=== PATIENT | female | born 1950 | race Caucasian/White ===

== ENCOUNTER 2022-07-01 02:18 | Inpatient (IN) | payer MEDICARE, SELFPAY ==
[2022-07-01] VITALS (55 sets, daily range): BP systolic 97–219; BP diastolic 60–130; PULSE 62–118; RESP 14–34; TEMP 36.4–37.1; O2SAT 87–99; BMI 27.3
--- NOTE | 2022-07-01 02:20 | ECG_ITS ---
[facility] Test Date: 2022-07-01 Pat Name: Yudith Damon Department: Room: Gender: Female Plaster Tender: : 1950 Requested By: Carisa Wayne Order Number: [id number] Lyndon MD: Carmen Lujan M.D. Measurements Intervals [place] Rate: 101 P: 39 NM: 170 QRS: -7 QRSD: 100 T: 200 QT: 328 QTc: 425 Interpretive Statements SINUS TACHYCARDIA ST DEVIATION AND MODERATE T-WAVE ABNORMALITY, CONSIDER LATERAL ISCHEMIA [-0.1+ mV T-WAVE IN I/aVL/V5/V6] No previous ECG available for comparison Electronically Signed On 07-01-2022 19:27:31 CDT by Carmen Lujan M.D. [id number]
--- NOTE | 2022-07-01 02:21 | XRR_ITS ---
PROCEDURE INFORMATION: Exam: XR Chest Exam date and time: 07/01/2022 2:31 AM Age: 71 years old Clinical indication: Pain; Chest pressure; Additional info: Cp TECHNIQUE: Imaging protocol: Radiologic exam of the chest. Views: 1 view. COMPARISON: No relevant prior studies available. FINDINGS: Lungs: Questionable ground-glass densities in the left lung base and retrocardiac region. The remainder of the lung parenchyma is clear. Pleural spaces: No pneumothorax. No pleural effusion. Heart/Mediastinum: The heart is enlarged for size. Bones/joints: Unremarkable. XR/XR chest 1V portable [id number] IMPRESSION: 1. Cardiomegaly. 2. Questionable ground-glass densities in the left lung base and retrocardiac region, which may be consistent with atelectasis versus focal pulmonary edema or pneumonia.
--- NOTE | 2022-07-01 02:22 | ED_ITS ---
HPI - Chest Pain General: Chief Complaint: Chest Pain Stated Complaint: CHEST PAIN Time Seen by Provider: 07/01/22 02:21 Source: patient and EMS Mode of arrival: EMS Limitations: no limitations History of Present Illness: 71-year-old female who states at 10 PM tonight started having severe crushing chest pain the center of her chest states originally 10 out of 10 when EMS arrived they given her 3 nitros and placed on Nitropaste along with Zofran as she is having some nausea she is currently pain-free she had some shortness of breath earlier and since resolved as well. Denies any vomiting denies any abdominal pain. Denies any fevers. Associated symptoms: Deny abdominal pain, dyspnea, fever(s), nausea or vomiting Review of Systems Const: Denies: fever(s), chills, body aches or change in appetite Eyes: Denies: blurry vision or eye discomfort ENMT: Denies: throat pain or dental pain Card: Reports: chest pain Resp: Denies: dyspnea GI: Denies: abdominal pain, nausea, vomiting or diarrhea : Denies: dysuria Musc: Denies: neck pain or back pain Skin/Breast: Denies: rash Neuro: Denies: headache(s) Psych: Denies: depression Fredy/Lymph: Denies: easy bruising All/Imm: Denies: urticaria PFSH ED PFSH: Medical History Smoking Social History (Updated 07/01/22 @ 02:23 by Carisa Wayne MD) Smoking and tobacco status: current every day smoker Physical Exam Const: COMMON NORMALS: no acute distress, patient oriented x3 and healthy appearing HENMT: COMMON NORMALS: normocephalic and atraumatic HEAD & SCALP: normocephalic and atraumatic Eye: COMMON NORMALS: Equal, round and reactive pupils present and EOMs intact bilaterally PUPIL: Yes Equal, round and reactive pupils present Neck/C-Spine: COMMON NORMALS: full ROM and supple Chest: COMMONS NORMALS: normal inspection of the chest and normal palpation of entire chest wall Resp: COMMON NORMALS: normal respiratory effort, No retractions, No use of accessory muscles and clear to auscultation bilaterally AUSCULTATION: clear to auscultation bilaterally Cardio: COMMON NORMALS: regular rate, regular rhythm and No murmurs present (Cardio) RATE: regular rate RHYTHM: regular rhythm GI: COMMON NORMALS: Normal to inspection, nondistended, normoactive bowel sounds present, Soft to palpation, non-tender and no masses PALPATION: Yes Soft to palpation Extremity: COMMON NORMALS: normal to inspection and full ROM Neuro: COMMON NORMALS: patient oriented x3, moves all extremities and no focal motor deficits Psych: COMMON NORMALS: mental status grossly normal, Normal thought process present and cooperative THOUGHT PROCESS: Normal thought process present Skin: COMMON NORMALS: no rashes or lesions noted and no wounds GENERAL SKIN EXAM: no rashes or lesions noted Course Vital Signs: Vital signs: Vital Signs Temperature 98.2 F 07/01/22 02:22 Pulse Rate 82 07/01/22 03:02 Respiratory Rate 19 H 07/01/22 02:39 Blood Pressure 167/97 07/01/22 03:02 Pulse Oximetry 94 07/01/22 03:02 Oxygen Delivery Me thod 07/01/22 02:22 MDM - Chest Pain Medical Decision Making Patient presents with chest pain that since been resolved she has been pain-free here she does have ST depression on her EKG troponins elevated up spoke to Dr. Anglin he is reviewed the EKG we will treat with Lovenox at this time and admit. Lab Data : 07/01/22 02:21 07/01/22 02:21 Laboratory Results WBC 8.0 10^3/uL (4.0-10.0) 07/01/22 02:21 RBC 5.10 10^6/uL (4.1-5.3) 07/01/22 02:21 Hgb 15.7 g/dL (11.5-15.3) H 07/01/22 02:21 Hct 46.0 % (37.0-47.0) 07/01/22 02:21 MCV 90.2 fl (81-99) 07/01/22 02:21 MCH 30.8 pg (28.0-34.0) 07/01/22 02:21 MCHC 34.1 g/dL (30.0-36.0) 07/01/22 02:21 RDW 12.9 % (12.1-15.1) 07/01/22 02:21 Plt Count 187 10^3/cmm (130-400) 07/01/22 02:21 MPV 10.1 fL (7.4-10.4) 07/01/22 02:21 Neut % (Auto) 64.5 % 07/01/22 02:21 Lymph % (Auto) 27.3 % 07/01/22 02:21 Pleasants % (Auto) 6.2 % 07/01/22 02:21 Eos % (Auto) 1.3 % 07/01/22 02:21 Baso % (Auto) 0.4 % 07/01/22 02:21 Neut # (Auto) 5.15 10^3/uL (1.8-7.7) 07/01/22 02:21 Lymph # (Auto) 2.2 10^3/uL (0.8-4.8) 07/01/22 02:21 Pleasants # (Auto) 0.5 10^3/uL (0.2-0.9) 07/01/22 02:21 Eos # (Auto) 0.1 10^3/uL (0.0-0.8) 07/01/22 02:21 Baso # (Auto) 0.0 10^3/uL (0.0-0.1) 07/01/22 02:21 Nucleated RBC % (auto) 0 % 07/01/22 02:21 Nucleated RBCs # 0.0 /100WBC 07/01/22 02:21 Sodium 138 mmol/L (136-145) 07/01/22 02:21 Potassium 3.6 mmol/L (3.5-5.1) 07/01/22 02:21 Chloride 103 mmol/L (98-107) 07/01/22 02:21 Carbon Dioxide 21 mmol/L (22-29) L 07/01/22 02:21 Anion Gap 17.6 (5-19) 07/01/22 02:21 BUN 13 mg/dL (8-23) 07/01/22 02:21 Creatinine 0.7 mg/dL (0.5-0.9) 07/01/22 02:21 GFR Calculation Not Reportable 07/01/22 02:21 Glucose 191 mg/dL (65-115) H 07/01/22 02:21 Calculated Osmolality 291 mOsm/kg (285-295) 07/01/22 02:21 Calcium 9.7 mg/dL (8.5-10.5) 07/01/22 02:21 Total Bilirubin 0.6 mg/dL (0.15-1.2) 07/01/22 02:21 AST 19 U/L (0-32) 07/01/22 02:21 ALT 10 U/L (0-33) 07/01/22 02:21 Alkaline Phosphatase 83 U/L (35-105) 07/01/22 02:21 Troponin T Baseline 353 ng/L (0-10) H* 07/01/22 02:21 Total Protein 7.5 g/dL (6.6-8.7) 07/01/22 02:21 Albumin 4.0 g/dL (3.5-5.2) 07/01/22 02:21 Globulin 3.5 g/dL (1.3-4.6) 07/01/22 02:21 EKG Data EKG 1: I personally reviewed and interpreted this EKG as follows: EKG interpretation date: 07/01/22 EKG interpretation time: 02:20 Interpretation: sinus tach hr 101 st depression in v2-v6 no st elevation qrs 100 qtc 386 Discharge Plan Discharge Patient Disposition: Admitted As Inpatient Clinical Impression: Non-ST elevation [place] (NSTEMI) Coding Level of Care Code ED Lay Out Worker for Chg Fwd Exam Comprehensive
[2022-07-01 02:27] LABS: Basophils % 0.4 %; Eosinophils # 0.1 10^3/uL (0.0-0.8); Eosinophils % 1.3 %; Hemoglobin 15.7 g/dL (11.5-15.3); Lymphocytes # 2.2 10^3/uL (0.8-4.8); Lymphocytes % 27.3 %; Mean Corpuscular HGB Conc 34.1 g/dL (30.0-36.0); Mean Corpuscular Hemoglobin 30.8 pg (28.0-34.0); Mean Corpuscular Volume 90.2 fl (81-99); Mean Platelet Volume 10.1 fL (7.4-10.4); Monocytes # 0.5 10^3/uL (0.2-0.9); Monocytes % 6.2 %; Neutrophils # 5.15 10^3/uL (1.8-7.7); Neutrophils % 64.5 %; Nucleated Red Blood Cells % 0 %; Platelet Count 187 10^3/cmm (130-400); Red Cell Distribution Width 12.9 % (12.1-15.1)
[2022-07-01 02:51] LABS: Alanine Aminotransferase 10 U/L (0-33); Alkaline Phosphatase 83 U/L (35-105); Anion Gap 17.6 (5-19); Aspartate Amino Transferase 19 U/L (0-32); Blood Urea Nitrogen 13 mg/dL (8-23); Calcium 9.7 mg/dL (8.5-10.5); Carbon Dioxide 21 mmol/L (22-29); Chloride 103 mmol/L (98-107); Creatinine Clr Calc Pharmacy 53.6619; Globulin 3.5 g/dL (1.3-4.6); Glucose 191 mg/dL (65-115); Osmolality Calculated 291 mOsm/kg (285-295); Potassium 3.6 mmol/L (3.5-5.1); Sodium 138 mmol/L (136-145); Total Bilirubin 0.6 mg/dL (0.15-1.2); Total Protein 7.5 g/dL (6.6-8.7)
[2022-07-01] MEDS: labetalol 5 mg/mL SDV 20mL 10 MG IVP (02:55)
[2022-07-01 03:01] LABS: Troponin(5th) Baseline 353 ng/L (0-10)
[2022-07-01] MEDS: enoxaparin 80 mg/0.8 mL Syringe 60 MG SUBCUT (03:19)
--- NOTE | 2022-07-01 04:21 | ECG_ITS ---
[facility] Test Date: 2022-07-01 Pat Name: Yudith Damon Department: Room: 276 Gender: Female Talent Consultant: : 1950 Requested By: Carisa Wayne Order Number: [id number] Lyndon MD: Carmen Lujan M.D. Measurements Intervals [place] Rate: 89 P: 39 VA: 175 QRS: 1 QRSD: 96 T: 199 QT: 344 QTc: 420 Interpretive Statements SINUS RHYTHM ST DEVIATION AND MODERATE T-WAVE ABNORMALITY, CONSIDER LATERAL ISCHEMIA [-0.1+ mV T-WAVE IN I/aVL/V5/V6] ST DEVIATION AND MODERATE T-WAVE ABNORMALITY, CONSIDER INFERIOR ISCHEMIA [-0.1+ mV T-WAVE IN II/aVF] Compared to ECG 07/01/2022 02:20:28 Sinus tachycardia no longer present T-wave abnormality still present Possible ischemia still present Electronically Signed On 07-01-2022 19:35:38 CDT by Carmen Lujan M.D. [id number]
--- NOTE | 2022-07-01 05:01 | PC.NURSE ---
This RN agrees with all documentation and medication administration as demonstrated by student RN at this time. Will continue to monitor student activities.
--- NOTE | 2022-07-01 05:24 | USCV_ITS ---
Yudith Damon Age: 71 Gender: F : 1950 Exam Date: 07/01/2022 09:00 Ordering Phys: Solange Ken MD Technologist: JOSEFA [place] [facility] [place]: CHEST PAIN, POST CATH BP: 185 / 125 HR: 74 Rhythm: Sinus Technical Quality: Adequate MEASUREMENTS (Male / Female) Normal Values 2D ECHO LVOT Diameter 2.0 cm LV Ejection Fraction MOD 2C 43.6 % LV Ejection Fraction 2C AL 44.3 % LA Diameter 3.4 cm LA Width 2.6 cm LA Height 5.6 cm RA Width 2.6 cm RA Height 3.8 cm Aorta at Sinotubular Diameter 2.7 cm IVC Diameter 1.7 cm M-MODE Aortic Annulus Diameter 2.6 cm LA Ao Ratio MM 1.2 MV E Point Septal Separation 0.7 cm DOPPLER AV Peak Velocity 149.0 cm/s LVOT Peak Velocity 93.0 cm/s AV Area Cont Eq vti 1.9 cm squared AV Area Cont Eq pk 2.0 cm squared MV Peak Velocity 116.0 cm/s MV Area PHT 3.2 cm squared Mitral E to A Ratio 0.6 MV E' Velocity 31.5 cm/s Mitral E to MV E' Ratio 13.6 Mitral E to LV E' Lateral Ratio 11.3 Mitral E to LV E' Septal Ratio 17.2 TR Peak Velocity 267.1 cm/s TR Peak Gradient 28.5 mmHg TR Mean Velocity 215.1 cm/s TR Mean Gradient 19.9 mmHg TR Velocity Time Integral 77.1 cm TV Peak E Velocity 48.0 cm/s Right Atrial Pressure 3.0 mmHg Pulmonary Artery Systolic Pressu 31.5 mmHg PV Peak Velocity 109.0 cm/s RV Acceleration Time 0.1 s RV Ejection Time 0.3 s RV AcT/ET 0.3 FINDINGS Left Ventricle Left ventricle is normal in size. LV systolic function is mildly reduced with EF of 40 to 45%. Mild global hypokinesis is seen. Moderate hypokinesis of inferior wall is seen. Grade 1 diastolic dysfunction is noted. Right Ventricle Normal in size and function Right Atrium Normal in size Left Atrium Normal in size Mitral Valve Structurally normal mitral valve. No significant stenosis is seen. Mild mitral regurgitation. Aortic Valve Grossly normal. No significant stenosis or regurgitation seen. Tricuspid Valve Trace tricuspid regurgitation. Insufficient TR jet to calculate RVSP. Pulmonic Valve Not well-visualized Pericardium Trace pericardial effusion Aorta Normal in size IVC IVC appears to be normal CONCLUSIONS LV systolic function is mildly reduced with EF of 40 to 45%. Mild global hypokinesis is seen. Moderate hypokinesis of inferior wall is seen Grade 1 diastolic dysfunction Mild mitral regurgitation Trace tricuspid regurgitation Trace pericardial effusion. No comparison studies are available Cheo Ford MD (Electronically Signed) Final Date: 01 July 2022 09:42 S
[2022-07-01] MEDS: nitroglycerin drip 50 MG/250 ML PREMIX IV (05:31)
[2022-07-01] MEDS: ondansetron 2 mg/ML SDV 2 mL 4 MG IVP ×3 (05:33→16:15)
--- NOTE | 2022-07-01 05:43 | P.HP_ITS ---
Providers/Chief Complaint Admitting Physician: Solange Ken MD Chief Complaint: CHEST PAIN History of Present Illness Yudith Damon is a 71 year old female with PMH smoking, HTN presenting with sudden onset crushing chest pain 07/03 radiating into left arm that started around 10 pm tonight. Associated symptoms include nausea, vomiting and diaphoresis. EKG shows ST depression in leads II and aVF. Baseline troponin at 353, pending 2 hr trend. No c/o dyspnea, palpitations, syncope. Pain is currently relieved after S/L and nitro patch Review of Systems General: Reports: 10 or more systems reviewed and unremarkable except in HPI and below Const: Denies: fever(s), chills or body aches Eyes: Denies: change in vision, blurry vision or photophobia ENMT: Reports: hoarseness; Denies: throat pain, enlarged tonsils, odynophagia or nasal congestion Card: Denies: chest pain, palpitations, irregular heart rhythm, edema, swelling of feet/ankles, lightheadedness, pre-syncope, dyspnea on exertion or orthopnea Resp: Denies: dyspnea, productive cough, non-productive cough, wheezing, stridor, pain on inspiration, change in phlegm color, hemoptysis or chest congestion GI: Denies: abdominal pain, nausea, vomiting, hematemesis, coffee ground emesis, dysphagia, heartburn, diarrhea, constipation, GI cramping, change in stool character, hematochezia or melena : Denies: flank pain, difficulty voiding, dysuria, urinary frequency, urinary urgency, urinary hesitancy or hematuria Musc: Denies: neck pain, back pain, extremity pain, joint swelling, joint warmth or deformity Neuro: Denies: headache(s), numbness in extremities, weakness in extremities, sensory changes, difficulty walking, frequent falls, dizziness, vertigo, behavioral changes, Slurred speech present or seizure-like activity Psych: Denies: anxiety, depression, suicidal ideation or homicidal ideation Endo: Denies: polyuria, polydipsia, tired all the time, cold intolerance or hot flashes Fredy/Lymph: Denies: easy bruising or easy bleeding Medications/Allergies Home Medications Medication Instructions Recorded Confirmed Last Taken Type No Known Home Medications 07/01/22 07/01/22 Unknown History Allergies Allergy/AdvReac Type Severity Reaction Status Date / Time Penicillins Allergy Unknown Verified 07/01/22 02:22 PFSH Acute PFSH: Medical History Smoking Social History Smoking and tobacco status: current every day smoker Vitals/I&O/Wt Last Vital Signs Temp 97.8 F 07/01/22 04:37 Pulse 92 07/01/22 04:59 Resp 17 07/01/22 04:37 BP 185/100 07/01/22 04:37 Pulse Ox 97 07/01/22 04:37 O2 Del Method 07/01/22 04:37 Weight last 48 hrs Weight 63.503 kg Physical Exam Narrative: General: No acute distress, AO x3 HEENT: PERRLA, pupils bilaterally equal and reactive, pallors not present Chest: Normal vesicular breath sounds, no added sounds, equal good air entry bilaterally CVS: S1-S2 regular, no murmurs, no tachycardia, no gallops, no rubs Abdomen: Soft, nontender, no organomegaly, bowel sounds present Neuro: No focal deficits, no facial deformity, AO x3, power 5/5 in all limbs Data : 07/01/22 02:21 07/01/22 02:21 A&P Assessment and plan (1) Non-ST elevation ID (NSTEMI): Patient p/w chest pain with ST-T wave changes in leads II and AVF with elevated troponin of 353 consistent with NSTEMI. Pending 2 hr troponin trend Admit to CSU continuous telemetry monitoring started on lovenox 1mg/kg s/c q12h ASA 81mg, atorvastatin 40mg to be started Currently has nitro paste 1inch patch on. If persisting chest pain, will start nitro gtt Received labetalol 10mg Iv x 1 in ER for SBP 180s. check echocardiogram NPO for possible cath this am cardiology consult check lipid panel and Hba1c Attestations Medical Necessity Statement*: anticipate >2midnight admission for NSTEMI Coding Level of Care Code Acute Mental Health Program Director for Maegan Garzon Diagnoses Non-ST elevation [place] (NSTEMI) I21.4
[2022-07-01] MEDS: morphine 4 mg/mL SDV 1 mL 2 MG IVP (05:44)
[2022-07-01] MEDS: hyDRALAzine 20 mg/mL INJ 1 mL 10 MG IVP (06:13)
[2022-07-01 06:30] LABS: Estmated Average Glucose 134; Hemoglobin A1C 6.3 % (4.0-6.0)
[2022-07-01 06:32] LABS: Chol HDL Ratio 7.38 mg/dL (0.0-4.40); Cholesterol 214 mg/dL (0-200); HDL Cholesterol 29 mg/dL (60-100); LDL Cholesterol Calculated 132 mg/dL (50-129); LDL HDL Ratio 4.55 RATIO (0.00-3.22); Triglycerides 263 mg/dL (0-150); Troponin 5 2HR 492.9 ng/L (0-10); Troponin 5 2HR Delta 139.9 ABS# (0-10)
--- NOTE | 2022-07-01 06:55 | PM.CONSULT ---
Providers/Reason For Consult Consulting Physician/Specialty*: Cheo Ford MD/ Interventional Cardiology Reason for Consult*: Chest pain/ Dynamic EKG changes Requesting Physician: Dr Wayne Attending Physician: Solange Ken MD History of Present Illness History of Present Illness Yudith Damon is a 71 year old female with past medical history of tobacco abuse and hypertension not on any medications has presented with chest pain for several hours. According to patient started at 10 PM last night. Severe, substernal and radiating to the left arm. Initial troponin was 353 and trended up to 493 at 2 hours. Still having on and off chest pain. Has dynamic EKG changes with ST depressions in lateral, inferior and anterior leads. Was put on nitro drip. Blood pressure is significantly elevated. Review of Systems General: Reports: 10 or more systems reviewed and unremarkable except in HPI and below Const: Denies: fever(s), chills or body aches Eyes: Denies: change in vision, blurry vision or photophobia ENMT: Reports: hoarseness; Denies: throat pain, enlarged tonsils, odynophagia or nasal congestion Card: Denies: chest pain, palpitations, irregular heart rhythm, edema, swelling of feet/ankles, lightheadedness, pre-syncope, dyspnea on exertion or orthopnea Resp: Denies: dyspnea, productive cough, non-productive cough, wheezing, stridor, pain on inspiration, change in phlegm color, hemoptysis or chest congestion GI: Denies: abdominal pain, nausea, vomiting, hematemesis, coffee ground emesis, dysphagia, heartburn, diarrhea, constipation, GI cramping, change in stool character, hematochezia or melena : Denies: flank pain, difficulty voiding, dysuria, urinary frequency, urinary urgency, urinary hesitancy or hematuria Musc: Denies: neck pain, back pain, extremity pain, joint swelling, joint warmth or deformity Neuro: Denies: headache(s), numbness in extremities, weakness in extremities, sensory changes, difficulty walking, frequent falls, dizziness, vertigo, behavioral changes, Slurred speech present or seizure-like activity Psych: Denies: anxiety, depression, suicidal ideation or homicidal ideation Endo: Denies: polyuria, polydipsia, tired all the time, cold intolerance or hot flashes Fredy/Lymph: Denies: easy bruising or easy bleeding Medications/Allergies Home Medications Medication Instructions Recorded Confirmed Last Taken Type No Known Home Medications 07/01/22 07/01/22 Unknown History Allergies Allergy/AdvReac Type Severity Reaction Status Date / Time morphine Allergy ALGY-Redness Verified 07/01/22 06:17 of Skin Penicillins Allergy Unknown Verified 07/01/22 02:22 Current Medications Generic Name Dose Route Start Last Admin Trade Name Freq PRN Reason Stop Dose Admin Nitroglycerin/Dextrose 50 mg in 250 mls @ 0 mls/hr 07/01/22 05:15 07/01/22 05:31 Nitroglycerin Drip IV 10 mcg/min .Q0M CHANTELLE 3 mls/hr Administration Protocol Per Protocol Ondansetron HCl 4 mg 07/01/22 05:14 07/01/22 05:33 Ondansetron 2 Mg/Ml Sdv 2 Ml IVP 4 mg Q8H PRN Administration vomiting, or N/V if npo PFSH Acute PFSH: Medical History Smoking Social History Smoking and tobacco status: current every day smoker Vitals/I&O/Wt Last Vital Signs Temp 97.9 F 07/01/22 05:53 Pulse 88 07/01/22 06:45 Resp 20 H 07/01/22 06:45 BP 158/96 07/01/22 06:45 Pulse Ox 97 07/01/22 06:45 O2 Del Method 07/01/22 04:37 Weight last 48 hrs Weight 140 lb Physical Exam Narrative: GENERAL: Patient is alert, awake and oriented x3. [] NECK: No jugular vein distension. [] HEENT: No cyanosis. No icterus. No pallor. [] HEART: Regular S1 and S2. No murmur, rub or gallop. [] LUNGS: Clear to auscultate bilaterally. [] ABDOMEN: Soft, nontender and nondistended. Positive bowel sounds. No guarding, rebound or tenderness. [] CENTRAL NERVOUS SYSTEM: Grossly nonfocal. [] EXTREMITIES: Lower extremities with 1+ edema bilaterally. Pulses palpable in the lower extremities, both dorsalis pedis and posterior tibial. [] Data : 07/01/22 02:21 07/01/22 02:21 A&P Assessment and plan (1) Non-ST elevation [place] (NSTEMI): (2) Smoking: (3) Hypertension: Plan Patient has presented with non-ST elevation [place]. Dynamic EKG changes and on and off ongoing chest pain. Loaded with aspirin and Plavix. We will proceed with coronary angiogram with possible percutaneous coronary intervention. Risks and benefits of the procedure have been discussed with the patient. She understands the risks and wants to proceed with the procedure. Keep n.p.o. Order echocardiogram Therapeutic anticoagulation initiated with Lovenox Thank you for involving us with care of this patient. We will continue to follow. Please call with questions. Consult Attestations Medical Necessity Statement: Care expected to cross 2 midnights. Coding Level of Care Code Acute Cardiothoracic Surgeon for Maegan Garzon Diagnoses Non-ST elevation [place] (NSTEMI) I21.4 Smoking F17.200 Hypertension I10
--- NOTE | 2022-07-01 06:57 | XACV_ITS ---
Exam Room: [facility] Ht: 152 cm Wt: 64 kg BSA: 1.66 m2 Gender: Female : 1950 Any Known Allergies: Penicillins Exam Priority: Routine Procedure(s): Procedure Description: Diagnostic procedure Procedure Description: Left Heart Catheterization Procedure Description: Coronary Angiography Diagnostic Cath Status: Urgent Diagnostic Findings * Left Main: Has severe distal 60-70% stenosis, ARIANNA: 3 flow. * After takeoff of diagonal artery, * mid Left Anterior Descending has severe 90% stenosis, ARIANNA: 3 flow. Apical LAD appears to be occluded very distally. * Ostial RCA has 80% stenosis. Mid RCA has severe 95% stenosis. * Distal RCA has 80% stenosis. * PDA has * moderate to severe * 60 to 70% stenosis. * PLV is patent. * Proximal Circumflex: significant 80% stenosis, ARIANNA: 3 flow. Gives rise to a large sized OM branch. OM1 vessel has 80 to 90% stenosis.. * INDICATION: 71 year old female with past medical history of tobacco abuse and hypertension not on any medications has presented with chest pain for several hours. According to patient started at 10 PM last night. Severe, substernal and radiating to the left arm. Initial troponin was 353 and trended up to 493 at 2 hours. Has dynamic EKG changes with ST depressions in lateral, inferior and anterior leads. Was put on nitro drip. Blood pressure is significantly elevated. * Coronary angiography shows right dominance. Conclusions 1. Critical multivessel coronary artery disease. Recommendations * We do not have CT surgery availability in the hospital. She does not have good percutaneous revascularization options given extent of CAD. We will recommend transfer to Center with CT surgery availability for heart team discussion and likely revascularization with coronary artery bypass surgery. * Continue aspirin. Keep holding Plavix. * Echocardiogram ordered. * Nitroglycerin drip as needed. Interventional RX Recommendation: CABG Diagnostic RX Recommendation: CABG Anticoagulation: Heparin Pressures Phase:Rest AO : 154 / 106 ( 128 ) @ 8:57:00 AM 136 / 59 ( 86 ) @ 9:11:00 AM 143 / 60 ( 89 ) @ 9:11:00 AM LV : 138 / -10 / 6 @ 9:11:00 AM 136 / -9 / 7 @ 9:11:00 AM Valves Phase:DefaultPhase AV : 0.0 @ 8:25:51 AM AV Mean Gradient: 0.0 @ 8:25:51 AM Clinical Evaluation EBL: 5mL-10mL Procedural Details Procedure Consent Obtained. Pre-Procedure Time Out. Identified patient by full name and date of as verbalized by the patient/guarantor. Does the consent match the physician's order: Yes. Accurate & Complete Informed Consent: Yes. Inpatient/Outpatient History & Physical on Chart: Yes. If H&P is completed, is and addenduem needed: No; If yes, is the addendum complete: N/A. Visualize and Verify Site with Patient/Guarantor: N/A. Relevant Radiology Images available: N/A. Pre-op teaching completed and patient verbalized understanding. The risks, benefits, and alternatives of sedation and/or procedure were discussed by physician. The patient agrees to continue. Procedure started. IV Site on Arrival: 20 gauge in the left wrist. IV Site on Arrival: 20 gauge in the right anticubital. Correct patient, site and procedure confirmed by cath team. [facility] Clinical Fraility Score: 3: Managing Well. Miner Placer Indications: ACS <= 24 hours. Chest Pain Symptom Assessment: Typical Angina Symptoms. Cardiovascular Instability: No. PERRLA. Strong, equal hand bonding and composite fabricator bilaterally. Lungs clear x 5 lobes. IV Fluids: 0.9% NaCl at KVO. 0 mL infused prior to phlebotomy lab assistant. Pre Procedural Pulses: right radial was 1+. Oxygen started at 2liters/min via nasal canula. bilateral groins was prepped with chloroprep then draped in the usual sterile fashion. Physician arrived. Baseline sample Acquired. HR: 66 BPM. Equipment: 6F - Femoral. Cardiac Cath Pack. ACIST Manifold Kit Model BT 2000. Heparinized Saline (2 units/mL), 1000 mL bag. Kit, Micropuncture. A 16Fr smith catheter was inserted without resistance maintaining sterile technique. Bag to gravity with clear urine returning. Physician scrubbed in. Immediate Pre-Procedure Time Out. Correct Patient: Yes; Correct Procedure: Yes; Correct Site: Yes; Correct Patient Position: Yes; Correct Supplies: Yes; Dried Flammable Prep: Yes; Blood Products Available: N/A;. Lidocaine 1% infiltrated to the right groin. Access obtained. Wire and needle out. Manual pressure held. Arterial access obtained with micropuncture set. Lidocaine 1% infiltrated to the right groin. A 5 [place] JL4 catheter in over wire. Catheter out. A 5 [place] JR4 catheter in over wire. Multiple views taken of left coronary artery. Multiple views taken of right coronary artery. EDP Sample taken: LV 138/-11,6; HR: 72 BPM; SpO2: 91%. Pullback taken: LV 136/-10,7; AO 136/59(86); Mean: 0mmHg, Peak to Peak: 0mmHg, SEP: 21sec/min; HR: 71 BPM; SpO2: 91%. Catheter out. Hand injection performed. Physician scrubbed out. A Suture was successful obtaining hemostatsis at the Right Femoral artery insertion site. Sheath(s) sutured into position with 2-0 silk and sterile 4x4's and Op-site applied over the site. No oozing or signs and symptoms of hematoma noted. Arterial sheath flushed and connected to tranducer and pressure bag with heparinized saline. Post Procedure: Pulses reassessed and unchanged. PERRLA. Strong, equal hand bonding and composite fabricator bilaterally. No VTE prophylaxis required. Medication's Wasted: Nitro = 50 mg. Medication's Wasted: Heparin = 4000 units. Medication's Wasted: Other = fentanyl 25 mcg. Total IV fluids: 79 mL. Contrast type used: Omnipaque 300 mgI/mL, 500 mL bottle. Post-op diagnosis: severe multi vessel CAD. Complications: none. Estimated blood loss: 5mL-10mL. Responsiveness - Normal response to verbal stimuli; alert and oriented, PERRLA. Airway - Unaffected, no intervention required; spontaneous ventilation. Circulation: W/N/L, pulses unchanged. Nausea/Vomiting: No. Procedure completed. Patient transferred by bed to [facility]. Vital chart was stopped. Access Site Site: Right Femoral artery Sheath Size: 6 Fr Hemostasis Method: Suture Hemostasis Success: Successful Procedure Medications Start: 7:29 AM Stop: 7:29 AM Medication: Versed Amount: 1 mg Route: I.V. Start: 7:29 AM Stop: 7:29 AM Medication: Fentanyl Amount: 25 mcg Route: I.V. Start: 7:41 AM Stop: 7:41 AM Medication: Versed Amount: 1 mg Route: I.V. Start: 7:44 AM Stop: 7:44 AM Medication: Fentanyl Amount: 25 mcg Route: I.V. Start: 7:44 AM Stop: 7:44 AM Medication: Benadryl Amount: 25 mg Route: I.V. Start: 7:50 AM Stop: 7:50 AM Medication: Fentanyl Amount: 25 mcg Route: I.V. Start: 7:54 AM Stop: 7:54 AM Medication: Versed Amount: 2 mg Route: I.V. I, the attending physician, have reviewed and verified all procedure medications. Yes, all medications given per verbal order History/Risk Factors Hypertension: Yes Dyslipidemia: No Peripheral Arterial Disease (PAD): No Myocardial Infarction (AZ): No Obesity: No Renal Disease: No Prior Interventions PCI: No CABG: No Valve Surgery: No Report Signatures Finalized by Cheo Ford MD on 07/01/2022 10:01 AM
--- NOTE | 2022-07-01 07:21 | PC.NURSE ---
Chest Pain At ~0530 patient began c/o chest pain, severe headache, nausea with dry heaves. Blood pressures elevated as documented. Informed Dr Ken. Doctor placed orders and contacted Dr Ford. Medications given as ordered. Planned for LHC at 0700 this morning. Patient prepped and consented. Pain resolving prior to going to medical laboratory technical officer however still have elevated BP. Dr Ford in room to see patient and discussed plan with her. Patient verbalized understanding.
--- NOTE | 2022-07-01 07:25 | W.PM.OPSUD ---
Surgery/Procedure H&P Update DATE OF PROCEDURE: July 01, 2022 DATE H&P PERFORMED: 07/01/22 H&P UPDATE INFORMATION: I have reviewed H&P completed within last 30 days, I have examined patient prior to procedure and No changes to prior documentation PREOP DIAGNOSIS: NSTEMI PRIMARY INDICATION FOR PROCEDURE: NSTEMI PLANNED PROCEDURE: Operation Date: 07/01/22 07:15 Proposed Procedures p Cardiac Catheterization(Left) - Cheo Ford M.D Possible percutaneous coronary intervention PATIENT REASSESSED PRIOR TO SEDATION, WITH NO CHANGE NOTED: Yes PHYSICAL EXAM: alert, oriented x 3, clear to auscultation bilaterally and regular rate & rhythm AIRWAY EVAL/ANESTHESIA PLAN: ASA III, Local Anesthesia, Risks, benefits & alternatives of sedation and/or procedure discussed and Patient agrees to continue as planned ADDITIONAL INFORMATION: Moderate sedation
--- NOTE | 2022-07-01 08:21 | ECG_ITS ---
[facility] Test Date: 2022-07-01 Pat Name: Yudith Damon Department: Room: 276 Gender: Female Pumper Gauger: : 1950 Requested By: Carisa Wayne Order Number: [id number] Reading MD: Carmen Lujan M.D. Measurements Intervals [place] Rate: 81 P: 35 ID: [id number] QRS: 77 QRSD: 110 T: -80 QT: 388 QTc: 451 Interpretive Statements SINUS RHYTHM WITH OCCASIONAL SUPRAVENTRICULAR PREMATURE COMPLEXES POSSIBLE LATERAL MYOCARDIAL INFARCTION , OF INDETERMINATE AGE [30 ms Q WAVE IN I/aVL/V5/V6] ST DEVIATION AND MODERATE T-WAVE ABNORMALITY, CONSIDER INFERIOR ISCHEMIA [-0.1+ mV T-WAVE IN II/aVF] Compared to ECG 07/01/2022 05:39:16 Myocardial infarct finding now present T-wave abnormality still present Possible ischemia still present Electronically Signed On 07-01-2022 19:37:13 CDT by Carmen Lujan M.D. [id number]
[2022-07-01] MEDS: pantoprazole DR 40 mg Tablet PO (09:40)
[2022-07-01] MEDS: HYDROmorphone 1 mg/mL INJ 1 mL 0.5 MG IVP ×2 (09:40→13:02)
[2022-07-01] MEDS: aspirin 81 mg EC Tablet PO (09:41)
[2022-07-01] MEDS: ALPRAZolam 0.5 mg Tablet 0.25 MG PO (11:11)
--- NOTE | 2022-07-01 11:33 | P.TS_ITS ---
Transfer Summary Providers Date of Admission: 07/01/22 03:45 Date of Discharge/Transfer: 07/01/22 Attending Provider at Admission: Solange Ken MD Attending Provider at Transfer: Zaynab Houston MD Transfer Plans: Anticipated date of transfer: 07/01/22 . Diagnoses at Discharge Discharge Diagnosis (1) Non-ST elevation AK (NSTEMI): Status: Acute (2) Smoking: Status: Acute (3) Hypertension: Status: Acute Reason for Visit Reason for Visit CHEST PAIN Hospital Course Hospital Course 71-year-old female, who lives alone, stating that she is not in contact with her other family members who live 2000 miles away, carries history of smoking, hypertension, presented with chief complaint of unstable angina, she was diagnosed with NSTEMI, cardiology was consulted, decision was made to go for coronary angiogram because of her persistent chest pain, angiogram showed multivessel disease rn community health has recommended CABG. Patient is agreeable to be transferred, she is stating that there is no other family to be contacted if anything neighbor should be notified, echo showing EF 40 to 45%, she has significant RCA stenosis at ostial, mid and distal, distal left main stenosis, obtuse marginal, left circumflex, detail report as per interventional cardiology. We will send DVD She has been accepted by Dr. Banuelos, rn community health at [facility] this case was presented to repair specialist as well who graciously excepted the patient for CABG. Social dynamics: Patient lives alone she relies on her neighbors stating that in case something happens to her her neighbors will reach out to her research hydrologist for cremation, for now she is agreeable for CABG and the transfer. For hypertensive emergency she is on Cardene drip Physical Exam Narrative: Currently patient is on Cardene drip Hypertensive Chest pain-free Awake and alert Able to comprehend Has capacity to make decision Anxious appearing Abdomen soft S1, S2 Currently on room air Hard of hearing TS Data Studies Completed and Pending Pending at discharge Category Date Time Status Complete Blood Count w/Auto AM LABS Lab 07/02/22 04:00 Ordered Comprehensive Metabolic Panel AM LABS Lab 07/02/22 04:00 Ordered Troponin(5th) 6 hour. Timed Lab 07/01/22 08:21 Ordered Labs from last 24 hours 07/01/22 07/01/22 07/01/22 05:59 05:59 05:59 WBC RBC Hgb Hct MCV MCH MCHC RDW Plt Count MPV Neut % (Auto) Lymph % (Auto) [place] % (Auto) Eos % (Auto) Baso % (Auto) Neut # (Auto) Lymph # (Auto) [place] # (Auto) Eos # (Auto) Baso # (Auto) Nucleated RBC % (auto) Nucleated RBCs # Sodium Potassium Chloride Carbon Dioxide Anion Gap BUN Creatinine GFR Calculation Glucose Estimat Average Glucose 134 Hemoglobin A1c 6.3 H Calculated Osmolality Calcium Total Bilirubin AST ALT Alkaline Phosphatase Troponin T Baseline Troponin T 120 Minute 492.9 H Delta Troponin T 139.9 H* Total Protein Albumin Globulin Triglycerides 263 H Cholesterol 214 H LDL Cholesterol, Calc 132 H HDL Cholesterol 29 L LDL/HDL Ratio 4.55 H Cholesterol/HDL Ratio 7.38 H 07/01/22 07/01/22 07/01/22 02:21 02:21 02:21 WBC 8.0 RBC 5.10 Hgb 15.7 H Hct 46.0 MCV 90.2 MCH 30.8 MCHC 34.1 RDW 12.9 Plt Count 187 MPV 10.1 Neut % (Auto) 64.5 Lymph % (Auto) 27.3 [place] % (Auto) 6.2 Eos % (Auto) 1.3 Baso % (Auto) 0.4 Neut # (Auto) 5.15 Lymph # (Auto) 2.2 [place] # (Auto) 0.5 Eos # (Auto) 0.1 Baso # (Auto) 0.0 Nucleated RBC % (auto) 0 Nucleated RBCs # 0.0 Sodium 138 Potassium 3.6 Chloride 103 Carbon Dioxide 21 L Anion Gap 17.6 BUN 13 Creatinine 0.7 GFR Calculation Not Reportable Glucose 191 H Estimat Average Glucose Hemoglobin A1c Calculated Osmolality 291 Calcium 9.7 Total Bilirubin 0.6 AST 19 ALT 10 Alkaline Phosphatase 83 Troponin T Baseline 353 H* Troponin T 120 Minute Delta Troponin T Total Protein 7.5 Albumin 4.0 Globulin 3.5 Triglycerides Cholesterol LDL Cholesterol, Calc HDL Cholesterol LDL/HDL Ratio Cholesterol/HDL Ratio Completed Studies During Hospitalization Category Date Time Status IP LITIGATION PARALEGAL request for service Routine Exams 07/01/22 06:57 Completed XR chest 1V portable [id number] Stat Exams 07/01/22 02:21 Completed CV. echo complete* [id number] Routine Ultrasound 07/01/22 05:24 Completed Laboratory Last Values WBC 8.0 10^3/uL (4.0-10.0) 07/01/22 02: RBC 5.10 10^6/uL (4.1-5.3) 07/01/22 02:21 Hgb 15.7 g/dL (11.5-15.3) H 07/01/22 02:21 Hct 46.0 % (37.0-47.0) 07/01/22 02:21 MCV 90.2 fl (81-99) 07/01/22 02:21 MCH 30.8 pg (28.0-34.0) 07/01/22 02:21 MCHC 34.1 g/dL (30.0-36.0) 07/01/22 02:21 RDW 12.9 % (12.1-15.1) 07/01/22 02:21 Plt Count 187 10^3/cmm (130-400) 07/01/22 02:21 MPV 10.1 fL (7.4-10.4) 07/01/22 02:21 Neut % (Auto) 64.5 % 07/01/22 02:21 Lymph % (Auto) 27.3 % 07/01/22 02:21 [place] % (Auto) 6.2 % 07/01/22 02:21 Eos % (Auto) 1.3 % 07/01/22 02:21 Baso % (Auto) 0.4 % 07/01/22 02:21 Neut # (Auto) 5.15 10^3/uL (1.8-7.7) 07/01/22 02: Lymph # (Auto) 2.2 10^3/uL (0.8-4.8) 07/01/22 02:21 [place] # (Auto) 0.5 10^3/uL (0.2-0.9) 07/01/22 02:21 Eos # (Auto) 0.1 10^3/uL (0.0-0.8) 07/01/22 02:21 Baso # (Auto) 0.0 10^3/uL (0.0-0.1) 07/01/22 02:21 Nucleated RBC % (auto) 0 % 07/01/22 02:21 Nucleated RBCs # 0.0 /100WBC 07/01/22 02:21 Sodium 138 mmol/L (136-145) 07/01/22 02:21 Potassium 3.6 mmol/L (3.5-5.1) 07/01/22 02:21 Chloride 103 mmol/L (98-107) 07/01/22 02:21 Carbon Dioxide 21 mmol/L (22-29) L 07/01/22 02:21 Anion Gap 17.6 (5-19) 07/01/22 02:21 BUN 13 mg/dL (8-23) 07/01/22 02:21 Creatinine 0.7 mg/dL (0.5-0.9) 07/01/22 02:21 GFR Calculation Not Reportable 07/01/22 02:21 Glucose 191 mg/dL (65-115) H 07/01/22 02:21 Estimat Average Glucose 134 07/01/22 05:59 Hemoglobin A1c 6.3 % (4.0-6.0) H 07/01/22 05:59 Calculated Osmolality 291 mOsm/kg (285-295) 07/01/22 02:21 Calcium 9.7 mg/dL (8.5-10.5) 07/01/22 02:21 Total Bilirubin 0.6 mg/dL (0.15-1.2) 07/01/22 02:21 AST 19 U/L (0-32) 07/01/22 02:21 ALT 10 U/L (0-33) 07/01/22 02:21 Alkaline Phosphatase 83 U/L (35-105) 07/01/22 02:21 Troponin T Baseline 353 ng/L (0-10) H* 07/01/22 02:21 Troponin T 120 Minute 492.9 ng/L (0-10) H 07/01/22 05:59 Delta Troponin T 139.9 ABS# (0-10) H* 07/01/22 05:59 Total Protein 7.5 g/dL (6.6-8.7) 07/01/22 02:21 Albumin 4.0 g/dL (3.5-5.2) 07/01/22 02:21 Globulin 3.5 g/dL (1.3-4.6) 07/01/22 02:21 Triglycerides 263 mg/dL (0-150) H 07/01/22 05:59 Cholesterol 214 mg/dL (0-200) H 07/01/22 05:59 LDL Cholesterol, Calc 132 mg/dL (50-129) H 07/01/22 05:59 HDL Cholesterol 29 mg/dL (60-100) L 07/01/22 05:59 LDL/HDL Ratio 4.55 RATIO (0.00-3.22) H 07/01/22 05:59 Cholesterol/HDL Ratio 7.38 mg/dL (0.0-4.40) H 07/01/22 05:59 Radiology Impressions Chest X-Ray 07/01/22 02:21 IMPRESSION: 1. Cardiomegaly. 2. Questionable ground-glass densities in the left lung base and retrocardiac region, which may be consistent with atelectasis versus focal pulmonary edema or pneumonia. Recent Clincial Data Last Vital Signs Temp 97.6 F 07/01/22 08:00 Pulse 74 07/01/22 11:32 Resp 25 H 07/01/22 11:32 BP 155/90 07/01/22 11:32 Pulse Ox 94 07/01/22 11:32 O2 Del Method 07/01/22 11:32 Vital Signs Temp Pulse Resp BP Pulse Ox O2 Del Method 07/01/22 11:32 74 25 H 155/90 94 Room Air 07/01/22 08:00 97.6 F 81 28 H 219/80 97 Room Air 07/01/22 06:45 88 20 H 158/96 97 07/01/22 06:30 86 20 H 166/86 98 07/01/22 06:36 85 28 H 169/95 97 07/01/22 06:31 85 26 H 171/104 97 07/01/22 06:15 81 29 H 186/110 97 07/01/22 06:00 97 20 H 183/117 07/01/22 05:45 90 30 H 195/96 97 07/01/22 05:30 87 27 H 185/117 95 07/01/22 05:15 86 34 H 185/100 93 07/01/22 05:00 85 27 H 186/110 93 07/01/22 04:30 80 29 H 185/100 94 07/01/22 04:21 118 H 07/01/22 05:53 97.9 F 62 22 H 97/60 96 07/01/22 05:44 20 H 07/01/22 04:59 92 07/01/22 04:37 97.8 F 84 17 185/100 97 Room Air 07/01/22 03:45 Room Air 07/01/22 03:33 84 20 H 167/97 98 07/01/22 03:02 82 167/97 94 07/01/22 02:39 95 19 H 184/108 95 07/01/22 02:22 98.2 F 101 H 18 182/109 97 Room Air Intake & Output/Weight 06/29/22 06/30/22 07/01/22 07/02/22 06:59 06:59 06:59 06:59 Intake Total 1.45 / 1.45 1.75 / 1.75 Balance 1.45 / 1.45 1.75 / 1.75 Weight 63.503 kg Vitals Last Vital Signs Temp 97.6 F 07/01/22 08:00 Pulse 74 07/01/22 11:32 Resp 25 H 07/01/22 11:32 BP 155/90 07/01/22 11:32 Pulse Ox 94 07/01/22 11:32 O2 Del Method 07/01/22 11:32 TS Medications Medications Acetaminophen (Acetaminophen 325 Mg Tablet) 650 mg PO Q6H PRN PRN Reason: Mild/Mod Pain Or Temp >/= 101 Acetaminophen (Acetaminophen 325 Mg Tablet) 650 mg PO Q6H PRN PRN Reason: MILD PAIN Al Hydrox/Mg Hydrox/Simethicone (Udud-Cot-Epoawsvof-Emilie 30 Ml Udc) 30 ml PO Q15M PRN PRN Reason: INDIGESTION Alprazolam (Alprazolam 0.5 Mg Tablet) 0.25 mg PO TID PRN PRN Reason: ANXIETY Last Admin: 07/01/22 11:11 Dose: 0.25 mg Aspirin (Aspirin 81 Mg Ec Tablet) 81 mg PO DAILY CHANTELLE Last Admin: 07/01/22 09:41 Dose: 81 mg Atropine Sulfate (Atropine 1 Mg/Ml Sdv 1 Ml) 0.5 mg IVP PRN PRN PRN Reason: Symptomatic bradycardia Enoxaparin Sodium (Enoxaparin 60 Mg/0.6 Ml Syringe) 60 mg SUBCUT Q12H CHANTELLE Fentanyl (Fentanyl 50 Mcg/Ml Inj 2ml) 50 mcg IVP PRN PRN PRN Reason: PAIN Hydromorphone HCl (Hydromorphone 1 Mg/Ml Inj 1 Ml) 0.5 mg IVP Q4H PRN PRN Reason: PAIN Last Admin: 07/01/22 09:40 Dose: 0.5 mg Nitroglycerin/Dextrose (Nitroglycerin Drip) 50 mg in 250 mls @ 0 mls/hr IV .Q0M CHANTELLE; Protocol Last Titration: 07/01/22 09:00 Dose: 10 mcg/min, 3 mls/hr Nicardipine/Sodium Chloride (Cardene) 20 mg in 200 mls @ 0 mls/hr IV .Q0M CHANTELLE; Protocol Magnesium Hydroxide (Magnesium Hydroxide 30 Ml Udc) 30 ml PO DAILY PRN PRN Reason: CONSTIPATION Naloxone HCl (Naloxone 0.4 Mg/Ml Sdv) 0.1 mg IVP Q2M PRN PRN Reason: OPIATERV Naloxone HCl (Naloxone 0.4 Mg/Ml Sdv) 0.1 mg IVP Q2M PRN PRN Reason: RESPIRATORY RATE < 8/MIN Nitroglycerin (Nitroglycerin 0.4 Mg Sublingual Tablet) 0.4 mg SUBLINGUAL Q5M PRN PRN Reason: CHEST PAIN Ondansetron HCl (Ondansetron 2 Mg/Ml Sdv 2 Ml) 4 mg IVP Q8H PRN PRN Reason: vomiting, or N/V if npo Last Admin: 07/01/22 05:33 Dose: 4 mg Pantoprazole Sodium (Pantoprazole Dr 40 Mg Tablet) 40 mg PO DAILY [facility] Last Admin: 07/01/22 09:40 Dose: 40 mg Temazepam (Temazepam 15 Mg Capsule) 15 mg PO BEDTIME PRN PRN Reason: INSOMNIA Discontinued Medications Diphenhydramine HCl (Diphenhydramine 50 Mg/Ml Sdv 1ml) Confirm Administered Dose 50 mg .ROUTE .STK-MED ONE Stop: 07/01/22 07:32 Enoxaparin Sodium (Enoxaparin 80 Mg/0.8 Ml Syringe) 60 mg SUBCUT ONCE ONE Stop: 07/01/22 03:16 Last Admin: 07/01/22 03:19 Dose: 60 mg Fentanyl (Fentanyl 50 Mcg/Ml Inj 2ml) Confirm Administered Dose 100 mcg .ROUTE .STK-MED ONE Stop: 07/01/22 07:01 Furosemide (Furosemide 10 Mg/Ml Sdv 10ml) Confirm Administered Dose 100 mg .ROUTE .STK-MED ONE Stop: 07/01/22 07:32 Heparin Sodium (Porcine) (Heparin 5,000 Unit/Ml Inj 1 Ml) Confirm Administered Dose 10,000 unit .ROUTE .STK-MED ONE Stop: 07/01/22 07:01 Hydralazine HCl (Hydralazine 20 Mg/Ml Inj 1 Ml) 10 mg IVP ONCE ONE Stop: 07/01/22 06:07 Last Admin: 07/01/22 06:13 Dose: 10 mg Lidocaine HCl (Xylocaine) Confirm Administered Dose 5 mls @ as directed .ROUTE .STK-MED ONE Stop: 07/01/22 07:00 Sodium Chloride (Sodium Chloride 0.9%) Confirm Administered Dose 1,000 mls @ as directed .ROUTE .STK-MED ONE Stop: 07/01/22 07:07 Lidocaine HCl (Xylocaine) Confirm Administered Dose 5 mls @ as directed .ROUTE .STK-MED ONE Stop: 07/01/22 07:44 Lidocaine HCl (Xylocaine) Confirm Administered Dose 5 mls @ as directed .ROUTE .STK-MED ONE Stop: 07/01/22 07:52 Labetalol HCl (Labetalol 5 Mg/Ml Sdv 20ml) 10 mg IVP ONCE ONE Stop: 07/01/22 02:35 Last Admin: 07/01/22 02:55 Dose: 10 mg Labetalol HCl (Labetalol 5 Mg/Ml Sdv 20ml) 10 mg IVP Q6H PRN PRN Reason: SBP >180 Midazolam HCl (Midazolam 1 Mg/Ml Inj 2 Ml) Confirm Administered Dose 2 mg .ROUTE .STK-MED ONE Stop: 07/01/22 07:02 Midazolam HCl (Midazolam 1 Mg/Ml Inj 2 Ml) Confirm Administered Dose 2 mg .ROUTE .STK-MED ONE Stop: 07/01/22 07:55 Morphine Sulfate (Morphine 4 Mg/Ml Sdv 1 Ml) 2 mg IVP Q4H PRN PRN Reason: SEVERE PAIN Last Admin: 07/01/22 05:44 Dose: 2 mg Nitroglycerin (Nitroglycerin 5 Mg/Ml Sdv 10 Ml) Confirm Administered Dose 50 mg .ROUTE .STK-MED ONE Stop: 07/01/22 07:01 Allergies morphine Allergy (Verified 07/01/22 06:17) ALGY-Redness of Skin Penicillins Allergy (Verified 07/01/22 02:22) Unknown Home Medications No Known Home Medications 07/01/22 [History Confirmed 07/01/22] Discharge Plan Discharge Patient Disposition: Xfer Other Condition: Stable Prescriptions: No Action No Known Home Medications Patient Instructions: Opioid Safety Transfer Attestations Time Spent in Transfer Care: less than 30 min Quality Metrics Clinical Quality Measures [ No reported AMI, CVA or VTE this stay] Coding Level of Care Code Acute Drama Critic for Maegan Garzon Diagnoses Non-ST elevation AK (NSTEMI) I21.4 Smoking F17.200 Hypertension I10
[2022-07-01] MEDS: nicardipine 20 MG/200 ML PREMIX 50 MG IV (11:35)
--- NOTE | 2022-07-01 13:45 | PC.NURSE ---
right femoral arterial sheath pulled at 1230.manual pressure held x 20 min.vss throughout procedure.right leg remained warm to touch and with brisk capillary refill.palpable dp pulse noted.site dressed with 2x2 gauze and secured with biocclusive drsg.pt instructed in activity restrictions s/p femoral artery sheath pull..and instructed to notify staff for any bleeding,pain,numbness or for any concerns at all.pt verb understanding of instructions.
--- NOTE | 2022-07-01 16:29 | PC.NURSE ---
lovenox held per dr Houston's order
--- NOTE | 2022-07-01 18:24 | PC.NURSE ---
report called to jose, all of pts belongings sent with patient.
== END 2022-07-01 17:30 | disposition short-term general hospital (02) | DRG 281 ==
LOC: ER 03:05 → MEDSURG 04:15
PROVIDERS: Internal Medicine; Admitting Provider Student in an Organized Health Care Education/Training Program; Emergency Provider Emergency Medicine; Visit Provider Internal Medicine
PROC: 4A023N7 Measurement of Cardiac Sampling and Pressure, Left Heart, Percutaneous Approach (ICD-10-PCS; principal; 2022-07-01 07:15)
DX: I21.4 Non-ST elevation (NSTEMI) myocardial infarction (principal); I16.1 Hypertensive emergency; I25.10 Atherosclerotic heart disease of native coronary artery without angina pectoris; F17.200 Nicotine dependence, unspecified, uncomplicated; I10 Essential (primary) hypertension; Z88.5 Allergy status to narcotic agent; Z88.0 Allergy status to penicillin
CPT/HCPCS: 36415; 71045; 80053; 80061; 83036; 84484; 85025; 93005; 93306; 93458; 96372; 96374; 99152; 99153; 99285; C1769; C1887; C1894; J0360; J1170; J1200; J1644; J1650; J1940; J2250; J2270; J2405; J3010; J3490; J7030; Q9967

== ENCOUNTER → 2022-08-03 10:24 | Outpatient (BNVA) | payer MEDICARE, SELFPAY | PROVIDERS: Visit Provider Internal Medicine Cardiovascular Disease | DX: I25.2 Old myocardial infarction (principal); I10 Essential (primary) hypertension; F17.200 Nicotine dependence, unspecified, uncomplicated; I25.10 Atherosclerotic heart disease of native coronary artery without angina pectoris; Z95.1 Presence of aortocoronary bypass graft | CPT/HCPCS: 99213 ==

== ENCOUNTER → 2024-04-08 13:38 | Outpatient (BNVA) | payer MEDICARE, SELFPAY | PROVIDERS: PCP Nurse Practitioner Family; Visit Provider Nurse Practitioner Family | DX: E11.9 Type 2 diabetes mellitus without complications (principal); R53.83 Other fatigue; I10 Essential (primary) hypertension | CPT/HCPCS: 80053; 80061; 83036; 85025 ==